=== PATIENT | female | born 1995 | race Two or more races ===

== ENCOUNTER 2016-12-04 10:03 | Emergency (ER) | payer OTHER ==
[2016-12-04 10:11] VITALS: BP 141/75
--- NOTE | 2016-12-04 10:40 | ER Document Report ---
ED General - General Chief Complaint: Flank Pain Stated Complaint: BACK PAIN Time Seen by Provider: 12/04/16 10:19 Mode of Arrival: Ambulatory Information source: Patient Notes: 20-year-old female presents with complaints of left CVA tenderness of 5 day duration. Patient denies any fevers or chills nausea vomiting or diarrhea except for one episode today. Patient denies any burning on urination difficulty urinating any frequency. Patient denies any trauma or twisting wrong Patient denies any cauda equina concerns TRAVEL OUTSIDE OF THE [place] IN LAST 30 DAYS: No - Related Data Allergies/Adverse Reactions: No Known Allergies Allergy (Unverified 12/04/16 10:51) Past Medical History - Social History Smoking Status: Never Smoker Chew tobacco use (# tins/day): No Frequency of alcohol use: None Drug Abuse: None Family History: Reviewed & Not Pertinent Patient has suicidal ideation: No Patient has homicidal ideation: No Renal/ Medical History: Denies: Hx Peritoneal Dialysis Surgical Hx: Negative Review of Systems - Review of Systems Notes: REVIEW OF SYSTEMS: CONSTITUTIONAL : Denies fever, chills, or sweats. Denies recent illness. EENT: Denies eye, ear, throat, or mouth pain or symptoms. Denies nasal or sinus congestion or discharge. Denies throat, tongue, or mouth swelling or difficulty swallowing. CARDIOVASCULAR: Denies chest pain. Denies palpitations or racing or irregular heart beat. Denies ankle edema. RESPIRATORY: Denies cough, cold, or chest congestion. Denies shortness of breath, difficulty breathing, or wheezing. GASTROINTESTINAL: Admits to nausea vomiting 1, admits to left flank pain GENITOURINARY: Denies difficulty urinating, painful urination, burning, frequency, blood in urine, or discharge. FEMALE GENITOURINARY: Denies vaginal bleeding, heavy or abnormal periods, irregular periods. Denies vaginal discharge or odor. MUSCULOSKELETAL: Denies back or neck pain or stiffness. Denies joint pain or swelling. SKIN: Denies rash, lesions or sores. HEMATOLOGIC : Denies easy bruising or bleeding. LYMPHATIC: Denies swollen, enlarged glands. NEUROLOGICAL: Denies confusion or altered mental status. Denies passing out or loss of consciousness. Denies dizziness or lightheadedness. Denies headache. Denies weakness or paralysis or loss of use of either side. Denies problems with gait or speech. Denies sensory loss, numbness, or tingling. Denies seizures. PSYCHIATRIC: Denies anxiety or stress. Denies depression, suicidal ideation, or homicidal ideation. ALL OTHER SYSTEMS REVIEWED AND NEGATIVE. PHYSICAL EXAMINATION: GENERAL: Well-appearing, well-nourished and in no acute distress. HEAD: Atraumatic, normocephalic. EYES: Pupils equal round and reactive to light, extraocular movements intact, conjunctiva are normal. ENT: Nares patent, oropharynx clear without exudates. Moist mucous membranes. NECK: Normal range of motion, supple without lymphadenopathy LUNGS: Breath sounds clear to auscultation bilaterally and equal. No wheezes rales or rhonchi. HEART: Regular rate and rhythm without murmurs ABDOMEN: Soft, nontender, nondistended abdomen. No guarding, no rebound. No masses appreciated. Left CVA tenderness Female : deferred Musculoskeletal: Normal range of motion, no pitting or edema. No cyanosis. NEUROLOGICAL: Cranial nerves grossly intact. Normal speech, normal gait. Normal sensory, motor exams PSYCH: Normal mood, normal affect. SKIN: Warm, Dry, normal turgor, no rashes or lesions noted. Dictation was performed using [employer] voice recognition software Physical Exam - Vital signs Vitals: Temp Pulse Resp BP Pulse Ox 98.1 F 74 20 141/75 H 98 12/04/16 10:06 12/04/16 10:06 12/04/16 10:06 12/04/16 10:06 12/04/16 10:06 Course - Re-evaluation Re-evalutation: 12/04/16 10:50 Urinalysis pending to evaluate for infectious process otherwise appears well 12/04/16 10:54 HCG is negative patient is noted to have mild leukoesterase is consistent with urinary tract infection she will be started on Cipro is otherwise well-appearing , patient did become nauseous in the ED as well was given nausea control will be discharged home in same After performing a Medical Screening Examination, I estimate there is LOW risk for ACUTE APPENDICITIS, BOWEL OBSTRUCTION, ACUTE CHOLECYSTITIS, PERFORATED DIVERTICULITIS, INCARCERATED HERNIA, PANCREATITIS, PELVIC INFLAMMATORY DISEASE, PERFORATED ULCER, ECTOPIC , or TUBO-OVARIAN ABSCESS, thus I consider the discharge disposition reasonable. Also, there is no evidence or peritonitis , sepsis, or toxicity. I have reevaluated this patient multiple times and no significant life threatening changes are noted. The patient and I have discussed the diagnosis and risks, and we agree with discharging home with close follow-up with the understanding that symptoms and presentations can change. We also discussed returning to the Emergency Department immediately if new or worsening symptoms occur. We have discussed the symptoms which are most concerning (e.g., bloody stool, fever, changing or worsening pain, vomiting) that necessitate immediate return. - Vital Signs Vital signs: Temp Pulse Resp BP Pulse Ox 98.1 F 74 20 141/75 H 98 12/04/16 10:06 12/04/16 10:06 12/04/16 10:06 12/04/16 10:06 12/04/16 10:06 - Laboratory Laboratory results interpreted by me: 12/04/16 10:39 Ur Leukocyte Esterase MODERATE H Discharge - Discharge Clinical Impression: Pyelonephritis Nausea & vomiting Qualifiers: Vomiting type: unspecified Vomiting Intractability: non-intractable Qualified Code(s): R11.2 - Nausea with vomiting, unspecified Condition: Stable Disposition: HOME, SELF-CARE Instructions: Pyelonephritis ([facility]) Additional Instructions: Follow up with your physician tomorrow for further care or return to the ED IMMEDIATELY if symptoms worsen or new concerns occur. If you cannot afford to follow up with your primary care physician a list of low cost clinics have been provided at the end of your discharge papers as well. Prescriptions: Ciprofloxacin HCl [Cipro 500 mg Tablet] 500 mg PO BID #20 tablet Promethazine HCl [Phenergan 25 mg Tablet] 1 - 2 tab PO Q6H PRN #15 tablet PRN Reason:
[2016-12-04] MEDS ORDERED: ONDANSETRON 4 MG TAB.RAPDIS PO ONE (10:50)
[2016-12-04] MEDS ORDERED: KETOROLAC TROMETHAMINE 60 MG/2 ML SDV IM ONE (10:52)
[2016-12-04 10:53] LABS: APPEARANCE,URINE SLIGHTLY-CLOUDY; BILIRUBIN,URINE NEGATIVE (NEGATIVE); GLUCOSE, URINE NEGATIVE (NEGATIVE); KETONES,URINE NEGATIVE (NEGATIVE); LEUKOCYTE ESTERASE,URINE MODERATE (NEGATIVE); NITRITE,URINE NEGATIVE (NEGATIVE); PROTEIN,URINE NEGATIVE (NEGATIVE); URINE SPECIFIC GRAVITY 1.018; UROBILINOGEN,URINE NEGATIVE mg/dL (<2.0)
== END 2016-12-04 11:10 | disposition home or self-care (01) ==
LOC: ER 10:03
DX: N12 Tubulo-interstitial nephritis, not specified as acute or chronic (principal); R11.2 Nausea with vomiting, unspecified; R10.9 Unspecified abdominal pain
CPT/HCPCS: 99284; 96372; 81025; 81001; J1885; S0119

== ENCOUNTER 2018-08-19 20:37 | Inpatient (IN) | payer MEDICAID ==
[2018-08-19] MEDS ORDERED: RINGERS SOLUTION,LACTATED 1,000 ML IV PRN (20:56)
[2018-08-19] MEDS ORDERED: OXYTOCIN/NORMAL SALINE 20 UNIT/1,000 ML RTUINJ IV PRN (20:56)
[2018-08-19] MEDS ORDERED: DINOPROSTONE 10 MG VAGINAL INSERT.SR PV PRN (20:56)
[2018-08-19 21:22] LABS: ABSOLUTE EOSINOPHILS # (AUTO) 0.1 10^3/uL (0.0-0.6); ABSOLUTE LYMPHOCYTES (AUTO) 3.2 10^3/uL (0.5-4.7); ABSOLUTE MONOCYTES (AUTO) 0.5 10^3/uL (0.1-1.4); ABSOLUTE NEUT (AUTO) 7.9 10^3/uL (1.7-8.2); BASOPHILS % (AUTO) 0.2 % (0-2); EOSINOPHILS % (AUTO) 0.8 % (0-6); HEMATOCRIT 36.5 % (36.0-47.0); HEMOGLOBIN 12.4 g/dL (12.0-15.5); LYMPHOCYTES % (AUTO) 27.5 % (13-45); MEAN CORPUSCULAR HGB CONC 33.9 g/dL (32.0-36.0); MEAN CORPUSCULAR VOLUME 88 fl (80-97); MONOCYTES % (AUTO) 4.7 % (3-13); PLATELET COUNT 356 10^3/uL (150-450); RED BLOOD COUNT 4.14 10^6/uL (3.72-5.28); RED CELL DISTRIBUTION WIDTH 15.8 % (11.5-14.0); SEGMENTED NEUTROPHILS % (AUTO) 66.8 % (42-78); TOTAL CELLS COUNTED % (AUTO) 100 %; WHITE BLOOD COUNT 11.7 10^3/uL (4.0-10.5)
[2018-08-19 21:25] LABS: APPEARANCE,URINE CLOUDY; BILIRUBIN,URINE NEGATIVE (NEGATIVE); COLOR,URINE YELLOW; GLUCOSE, URINE NEGATIVE (NEGATIVE); KETONES,URINE NEGATIVE (NEGATIVE); LEUKOCYTE ESTERASE,URINE TRACE (NEGATIVE); NITRITE,URINE NEGATIVE (NEGATIVE); PROTEIN,URINE NEGATIVE (NEGATIVE); URINE SPECIFIC GRAVITY 1.017; UROBILINOGEN,URINE NEGATIVE mg/dL (<2.0)
[2018-08-19 21:41] LABS: URINE AMPHETAMINES SCREEN NEGATIVE; URINE BARBITURATES SCREEN NEGATIVE; URINE BENZODIAZEPINES SCREEN NEGATIVE; URINE COCAINE SCREEN NEGATIVE; URINE MARIJUANA (THC) SCREEN NEGATIVE; URINE METHADONE SCREEN NEGATIVE; URINE PHENCYCLIDINE SCREEN NEGATIVE
[2018-08-19] MEDS ORDERED: DINOPROSTONE 10 MG VAGINAL INSERT.SR ONE (21:50)
[2018-08-19] MEDS ORDERED: PENICILLIN G POTASSIUM 5,000,000 UNIT in DEXTROSE 5%-WATER 100 ML IV ONE (22:00)
[2018-08-19] MEDS ORDERED: RINGERS SOLUTION,LACTATED 300 ML IV ONE (22:00)
--- NOTE | 2018-08-20 07:08 | Admission Physical ---
Datetime Report Generated by CPN: 08/20/2018 07:08 CURRENT ADMISSION Chief Complaint: Scheduled Induction of Labor Indication for Induction: Post Dates Admit Impression : Postterm, Intrauterine ; No Active Labor; Induction of Labor Admit Plan: Admit to Unit; Initiate Labor Induction Protocol ALLERGIES Medication Allergies: No Medication Allergies: No Known Allergies (08/19/2018) Latex: No Latex Allergies OBSTETRICAL HISTORY EDC: 08/12/2018 00:00 : 1 Para: 0 Term: 0 : 0 SAB: 0 IAB: 0 Livin Gestational Diabetes: No Rh Sensitization: No Incompetent Cervix: No ERIBERTO: No Infertility: No ART Treatment: No Uterine Anomaly: No IUGR: No Hx Previous C/S: No Macrosomia: No Hx Loss/Stillborn: No PIH: No Hx : No Placenta Previa/Abruption: No Depression/PP Depression: No PTL/PROM: No Post Hemorrhage: No Current Procedures: Ultrasound Obstetrical History Comments: g1-current , late to care SEE RECORDS Alcohol: No Marijuana : No Cocaine: No Other Illicit Drugs: No Cigarettes: Never Smoker. [id number] MEDICAL HISTORY Diabetes: No Blood Transfusion: No Pulmonary Disease (Asthma, TB): No Breast Disease: No Hypertension: No Production Crew Supervisor Surgery: No Heart Disease: No Hosp/Surgery: No Autoimmune Disorder: No Anesthetic Complications: No Kidney Disease: No Abnormal Pap Smear: No Neuro/Epilepsy: No Psychiatric Disorders: No Other Medical Diseases: No Hepatitis/Liver Disease: No Significant Family History: No Varicosities/Phlebitis: No Trauma/Violence : No Thyroid Dysfunction: No Medical History Comments: obesity INFECTIOUS HISTORY Gonorrhea: No Genital Herpes: No Chlamydia: Yes Tuberculosis: No Syphilis: No Hepatitis: No HIV/AIDS Exposure: No Rash or Viral Illness: No HPV: No Infectious History Comments: chlamydia 2018 PHYSICAL EXAM General: Normal HEENT: Normal Neurologic: Normal Thyroid: Normal Heart: Normal Lungs: Normal Breast: Normal Back: Normal Abdomen: Normal Genitourinary Exam: Normal Extremities: Normal DTRs: Normal Pelvic Type: Adequate Vital Signs: Reviewed; Within Normal Limits VAGINAL EXAM Dilatation: 0 Effacement: 0 Station: -3 MEMBRANES Pooling: Negative Membranes: Intact FETUS A EGA: 41.1 Monitoring: External US FHR- Baseline: 140 Variability: Moderate 6-25bpm Accelerations: 15X15 Decelerations: None FHR Category: Category I Estimated Weight (gm): 3500 Presentation: Vertex PLANS FOR LABOR AND DELIVERY Labor and Delivery: None Pain Management: Natural Feeding Preference: Breast Benefit of Breast Feed Discussed: Yes Circumcision: N/A INFORMED CONSENT Signature: with User ID: Joe
[2018-08-20] MEDS ORDERED: MISOPROSTOL 0.1 MG TABLET PV SCH ×2 (12:00→15:25)
[2018-08-20] MEDS ORDERED: MISOPROSTOL 0.1 MG TABLET PO SCH (12:00)
[2018-08-20] MEDS ORDERED: MISOPROSTOL 0.1 MG TABLET ONE ×2 (12:07→15:24)
--- NOTE | 2018-08-20 13:07 | L&D Progress Notes ---
PROGRESS NOTES Datetime Report Generated by CPN: 08/20/2018 13:07 PROGRESS NOTE Impression: Reassuring Heart Rate Procedures: Sterile Vag Exam Plan: Induction; Cervical Ripening Plan Other: +GBS, plan PCN when in active labor Vital Signs : Reviewed; Within Normal Limits Comment: at 41.1 wks s/p cervidil overnight for cervical ripening. Membranes intact. GBS+. Cat 1 FHR tracing. Pt remains comfortable with rare contraction. VE /-3. Sher's Catheter attempted x [address] into the cervix without success. Then 25 mcg Cytotec placed vaginally and 25 mcg PO given to continue with IOL and cervical ripening. Attending MD is Dr Chamorro. VAGINAL EXAM Dilatation: 1 Dilatation: 0 Effacement: 50 Effacement: 0 Station: -3 Station: -3 Contractions: occassional occassional LAST VAGINAL EXAM-NURSING Dilitation: 1.0 Dilitation: 0.0 Effacement: 50 Effacement: thick Station: -3 Station: -3 Contractions: UTD ctx pattern toco adjusted Contractions: UTD ctx pattern. toco adjusted Contractions: no ctx MEMBRANES Pooling: Negative Membranes: Intact Membranes: Intact FETUS A FHR - Baseline: 140 Monitoring: External US Variability: Moderate 6-25bpm Accelerations: 15X15 Decelerations: None FHR Category: Category I : 41.1 Estimated Weight (gm): 3500 Presentation: Vertex SIGNATURE SIGNATURE: ,[id number] SIGNATURE: [id number] Assignment: Mine Rosales MD Signature: with User ID: Hilary : with User ID: Hilary
--- NOTE | 2018-08-20 15:45 | L&D Progress Notes ---
PROGRESS NOTES Datetime Report Generated by CPN: 08/20/2018 15:44 PROGRESS NOTE Impression: Reassuring Heart Rate Procedures: Sterile Vag Exam Plan: Continue Present Management; Cervical Ripening Vital Signs : Reviewed; Within Normal Limits Comment: IOL s/p cervidil over night and then PO/PV cyctotec at noon. Pt remains comfortable, contractions have spaced apart. VE loose 1/50/-2, intact. GBS +. 2nd dose of 25 mcg PV cytotec and 25 mcg PO cyctec given to continue with IOL. Position changes encouraged. Start PCN once pt is in active labor or SROM. VAGINAL EXAM Dilatation: 1 Effacement: 50 Station: -2 Contractions: q2-6 Dilitation: 1-2 Effacement: 50 Station: -3 MEMBRANES Membranes: Intact FETUS A FHR - Baseline: 145 Monitoring: External US Variability: Moderate 6-25bpm Accelerations: 15X15 FHR Comments: the [facility] EFM system has picked up maternal HR due to patients position FETUS C SIGNATURE: [id number];[id number] Assignment: Mine Rosales MD Signature: with User ID: [email or web address] : with User ID: [email or web address]
[2018-08-20] MEDS ORDERED: PENICILLIN G-K 5 MILLION UNIT VIAL ONE (20:36)
[2018-08-20] MEDS ORDERED: OXYTOCIN 10 UNIT/ML VIAL ONE (21:07)
[2018-08-20] MEDS ORDERED: LIDOCAINE 1% INJ-PF (10 MG/ML) 30 ML SDV ONE (21:07)
[2018-08-20] MEDS ORDERED: OXYTOCIN/NORMAL SALINE 20 UNIT/1,000 ML RTUINJ ONE (21:07)
[2018-08-20] MEDS ORDERED: MISOPROSTOL 0.2 MG TABLET ONE (21:07)
[2018-08-20] MEDS ORDERED: NALBUPHINE HCL INJ 10 MG/1 ML AMPULE INJ ONE (22:03)
[2018-08-20] MEDS ORDERED: PROMETHAZINE HCL INJ 25 MG/1 ML VIAL IV ONE (22:03)
[2018-08-20] MEDS ORDERED: NALBUPHINE HCL INJ 10 MG/1 ML AMPULE ONE (22:07)
[2018-08-20] MEDS ORDERED: PROMETHAZINE HCL INJ 25 MG/1 ML VIAL ONE (22:07)
[2018-08-21] MEDS ORDERED: PENICILLIN G-K 5 MILLION UNIT VIAL ONE ×2 (00:47→04:44)
[2018-08-21] MEDS ORDERED: EPHEDRINE SULFATE INJ 50 MG/1 ML AMPULE ONE (03:00)
[2018-08-21] MEDS ORDERED: BUPIVACAINE HCL 0.25 % INJ/PF (2.5 MG/1 ML) 30 ML VIAL ONE (03:00)
[2018-08-21] MEDS ORDERED: FENTANYL/BUPIVACAINE/NS/PF 300 MCG/150 ML RTUINJ EPI ONE (03:00)
[2018-08-21] MEDS: PENICILLIN G-K 5 MILLION UNIT VIAL IV SCH ×2 (04:50→10:25)
--- NOTE | 2018-08-21 05:40 | L&D Progress Notes ---
PROGRESS NOTES Datetime Report Generated by CPN: 08/21/2018 05:40 PROGRESS NOTE Impression: Normal Progression of Labor Procedures: Artificial ROM Plan: Continue Present Management Vital Signs : Reviewed; Within Normal Limits Comment: Pt comfortable-s/p epidural VAGINAL EXAM Dilitation: 9.0 Dilitation: 9.0 Dilitation: 6.0 Dilitation: 3.0 Dilitation: 2.0 Effacement: 100 Effacement: 100 Effacement: 100 Effacement: 75 Effacement: 50 Station: 2 Station: 1 Station: 0 Station: 0 Station: -3 Contractions: post epidural Contractions: with some irritability Contractions: with periods of irritability Contractions: with periods of irritability Contractions: with periods of irritability Contractions: irregular in between Contractions: UC not tracing well s/t maternal habitus and pt position on side FETUS A FHR - Baseline: 120s Monitoring: External US Variability: Moderate 6-25bpm Accelerations: 15X15 Decelerations: None FHR Category: Category I : 41.2 FETUS C SIGNATURE: [id number];[id number] Signature: with User ID: [email or web address]
[2018-08-21] MEDS ORDERED: ZOLPIDEM TARTRATE 5 MG TABLET PO PRN (07:14)
[2018-08-21] MEDS ORDERED: DIBUCAINE 1% OINTMENT 56 GM TP PRN (07:14)
[2018-08-21] MEDS ORDERED: HYDROCODONE/ACETAMINOPHEN 5-325 MG TABLET PO PRN (07:14)
[2018-08-21] MEDS ORDERED: ACETAMINOPHEN WITH CODEINE #3 TABLET PO PRN ×2 (07:14)
[2018-08-21] MEDS ORDERED: BENZOCAINE/MENTHOL AEROSOL SPRAY 56 ML TOP PRN (07:14)
[2018-08-21] MEDS ORDERED: DIPH/PERTUSS(ACELL)/TETANUS VAC/PF 0.5 ML SYR (>=10YO) IM PRN (07:14)
[2018-08-21] MEDS ORDERED: OXYTOCIN/NORMAL SALINE 20 UNIT/1,000 ML RTUINJ IV PRN (07:14)
--- NOTE | 2018-08-21 10:21 | Delivery Summary ---
Del Sum A-C Datetime Report Generated by CPN: 08/21/2018 10:21 DELIVERY PERSONNEL DELIVERY PERSONNEL: [id number] Delivery Doctor:: Mine Rosales MD Labor and Delivery Nurse:: Gissell Hernandez RNtin flipper Nurse:: Nhi Joseph RN Customer Account Coordinator/COSMETOLOGY INSTRUCTOR: Rocio Bennett, DIET TECH MATERNAL INFORMATION Delivery Anesthesia: Epidural Medications After Delivery: Pitocin Bolus-Please Comment; Pitocin Drip 20 Units/1000ml NSS Meds After Delivery Comment: Pitocin 20 units in 1 L NS bolusing per order Estimated Blood Loss (ml): 400 ml Maternal Complications: None Provider Comments: of a viable female at 0642 with an OA presentation; APGARs 8, 9; 2nd degree midline vag lac LABOR SUMMARY EDC: 08/12/2018 00:00 No. Babies in Womb: 1 Attempted: No Labor Anesthesia: Epidural LABOR INFORMATION Reason for Induction: Post Dates Onset of Labor: 08/21/2018 03:00 Complete Dilatation: 08/21/2018 05:58 Cervical Ripening Agents: Cervidil; Cytotec @ Oxytocin: Induction Group B Beta Strep: Positive Antibiotics # of Doses: 4 Antibiotics Time of Last Dose: 0449 Name of Antibiotic Given: PCN Steroids Given: None Reason Steroids Not Administered: Not Applicable MEMBRANES Membranes Rupture Method: Spontaneous Rupture of Membranes: 08/21/2018 19:35 Length of Rupture (hr): -12.88 Amniotic Fluid Color: Clear Amniotic Fluid Amount: Scant Amniotic Fluid Odor: Normal STAGES OF LABOR Stage 1 hr: 2 Stage 1 min: 58 Stage 2 hr: 0 Stage 2 min: 44 Stage 3 hr: 0 Stage 3 min: 5 Total Time in Labor hr: 3 Total Time in Labor min: 47 VAGINAL DELIVERY Episiotomy: None Laceration #1: Vaginal Laceration Extension #1: Second Degree Laceration Repair: Yes Laceration Repair Note: 2-0 vicryl used for repair Sponge Count Correct: Yes Sharps Count Correct: Yes CSECTION DELIVERY Primary Indication: N/A Secondary Indication: N/A CSection Incidence: N/A Labor: N/A Elective: N/A CSection Incision: N/A BABY A INFORMATION Delivery Date/Time: 08/21/2018 06:42 Method of Delivery: Vaginal Born in Route : No : N/A Forceps: N/A Vacuum Extraction: N/A Shoulder Dystocia : No PRESENTATION/POSITION BABY A Presentation: Cephalic Cephalic Presentation: Vertex Vertex Position: Left Occipital Anterior Breech Presentation: N/A PLACENTA INFORMATION BABY A Placenta Delivery Time : 08/21/2018 06:47 Placenta Method of Delivery: Spontaneous Placenta Status: Delivered SCORES BABY A Heart Rate 1 min: >100 bpm Resp Effort 1 min: Slow, Irregular Reflex Irritability 1 min: Cough or Sneeze or Pulls Away Muscle Tone 1 min: Active Motion Color 1 min: Body Protection, Extremities Blue SCORE 1 MIN: 8 Heart Rate 5 min: >100 bpm Resp Effort 5 min: Good Cry Reflex Irritability 5 min: Cough or Sneeze or Pulls Away Muscle Tone 5 min: Active Motion Color 5 min: Body Protection, Extremities Blue SCORE 5 MIN: 9 INFORMATION BABY A Gestational Age at Delivery: 41.2 Gestational Status: Late Term- 41- 41.6 Weeks Infant Outcome : Liveborn Condition : Stable Sex: Female IDENTIFICATION BABY A Infant Verification Date/Time: 08/21/2018 07:11 ID Band Number: [id number] Mother's Name Verified: Yes RN Verifying : killinger Additional Verifying Personnel: denise CORD INFORMATION BABY A No. Cord Vessels: 3 Nuchal Cord : N/A True Knot: 0 Cord Blood Taken: Yes-For Storage (Mom's Blood type +) Suction: None ASSESSMENT BABY A Complications: None Physical Findings at Delivery: Within Normal Limits Respirations: Appears Normal Skin to Skin: Yes Skin to Skin Time (min): 60 Simulation Technician/ALS Called : No BABY B INFORMATION : N/A SIGNATURES Signature: with User ID: [email or web address]
[2018-08-21] MEDS: MISOPROSTOL 0.1 MG TABLET PV SCH (10:24)
[2018-08-21] MEDS: PENICILLIN G POTASSIUM 2,500,000 UNIT in DEXTROSE 5%-WATER 50 ML IV SCH (10:26)
[2018-08-21] MEDS: FERROUS SULFATE 325 MG TABLET PO SCH ×2 (10:30→18:40)
[2018-08-21] MEDS: SENNOSIDES/DOCUSATE 8.6-50 MG 1 EACH TABLET PO SCH (10:30)
[2018-08-21] MEDS: DOCUSATE SODIUM 100 MG CAPSULE PO SCH ×2 (10:30→18:40)
[2018-08-21] MEDS: PRENATAL VITAMIN W DHA CAPSULE PO SCH (10:30)
[2018-08-21] MEDS: IBUPROFEN 800 MG TABLET PO SCH ×2 (13:19→22:06)
[2018-08-22] MEDS: IBUPROFEN 800 MG TABLET PO SCH ×3 (05:57→21:07)
[2018-08-22 07:40] LABS: HEMATOCRIT 27.1 % (36.0-47.0); MEAN CORPUSCULAR HEMOGLOBIN 30.9 pg (27.0-33.4); MEAN CORPUSCULAR HGB CONC 34.9 g/dL (32.0-36.0); MEAN CORPUSCULAR VOLUME 89 fl (80-97); PLATELET COUNT 202 10^3/uL (150-450); RED BLOOD COUNT 3.07 10^6/uL (3.72-5.28); RED CELL DISTRIBUTION WIDTH 16.4 % (11.5-14.0); WHITE BLOOD COUNT 9.9 10^3/uL (4.0-10.5)
[2018-08-22 07:41] LABS: HEMOGLOBIN 9.5 g/dL (12.0-15.5)
[2018-08-22] MEDS: SENNOSIDES/DOCUSATE 8.6-50 MG 1 EACH TABLET PO SCH (09:55)
[2018-08-22] MEDS: DOCUSATE SODIUM 100 MG CAPSULE PO SCH ×2 (09:55→17:20)
[2018-08-22] MEDS: FERROUS SULFATE 325 MG TABLET PO SCH ×2 (09:55→17:20)
[2018-08-22] MEDS: PRENATAL VITAMIN W DHA CAPSULE PO SCH (09:55)
--- NOTE | 2018-08-22 11:58 | PDOC PROGRESS REPORT ---
Subjective-OB Progress Note for:: 08/22/18 Subjective: 22yo G1 now P1 s/p ppd 1. Ambulating, and voiding without difficulty. Reports pain well controlled with medication. No concerns at this time. Physical Exam (OB) Vital Signs: Temp Pulse Resp BP Pulse Ox 97.9 F 91 14 109/65 100 08/22/18 07:39 08/22/18 07:39 08/22/18 07:39 08/22/18 07:39 08/22/18 07:39 - General General Appearance: Appears well In distress: None - PIH/Pre-Eclampsia DTR's: 2 + Clonus: Negative Headache: Absent Epigastric Pain: No Visual Changes: No - Episiotomy/Laceration Site Condition: Well Approximated - Lochia Lochia Amount: Small 10-25 ml Lochia Color: Rubra/Red - Abdomen Description: Soft Hernia Present: No Fundal Description: Firm, Midline Fundal Height: u/u - u/2 - Respiratory Respiratory Status: No respiratory distress - Extremities Upper extremity: Normal inspection Lower extremities: Normal inspection - Neurological Cognition: Normal Orientation: AAOx4 - Psychological Associated symptoms: Normal affect, Normal mood Objective-Diagnostic Laboratory: 08/22/18 06:54 08/22/18 06:54 WBC 9.9 RBC 3.07 L Hgb 9.5 L D Hct 27.1 L MCV 89 MCH 30.9 MCHC 34.9 RDW 16.4 H Plt Count 202 Assessment and Plan(PN) - Assessment and Plan (1) Obstetric vaginal laceration with second degree perineal laceration Is this a current diagnosis for this admission?: Yes Plan: routine pp care. Continue to monitor for s/s of infection. (2) Acute blood loss anemia Is this a current diagnosis for this admission?: Yes Plan: increase dietary iron and FeSO4 BID (3) Delivery normal Is this a current diagnosis for this admission?: Yes Plan: routine pp care - Time Spent with Patient Time with patient: Less than 15 minutes Medications reviewed and adjusted accordingly: Yes - Disposition Anticipated Discharge: Home Within: within 24 hours
[2018-08-23] MEDS: IBUPROFEN 800 MG TABLET PO SCH ×2 (05:24→14:38)
[2018-08-23 08:35] VITALS: BP 118/61
--- NOTE | 2018-08-23 09:09 | PDOC DISCHARGE SUMMARY ---
Final Diagnosis Discharge Date: 08/23/18 - Final Diagnosis (1) Acute blood loss anemia Is this a current diagnosis for this admission?: Yes (2) Delivery normal Is this a current diagnosis for this admission?: Yes (3) Obstetric vaginal laceration with second degree perineal laceration Is this a current diagnosis for this admission?: Yes Discharge Data - Discharge Medication Home Medications: 95/Iron Fum/Folic/Dha [ + Dha Combo Pack] 1 each PO DAILY 08/19/18 Reason(s) for Admission: Induction of Labor Procedures: NST Intrapartum Procedure(s): Spontaneous Vaginal Delivery Complication(s): Laceration-Vaginal, Laceration-Perineal Laceration-Degree: 2nd - Diagnosis Test Laboratory: Temp Pulse Resp BP Pulse Ox 98.3 F 96 16 118/61 100 08/23/18 08:11 08/23/18 08:11 08/23/18 08:11 08/23/18 08:11 08/23/18 08:11 08/19/18 08/19/18 08/22/18 20:45 21:05 06:54 RBC 4.14 3.07 L Hgb 12.4 9.5 L D Hct 36.5 27.1 L Urine Opiates Screen NEGATIVE - Discharge information/Instructions Discharge Activity: Balance Activity w/Rest, Pelvic Rest Discharge Diet: Regular Disposition: HOME, SELF-CARE Follow up with: [facility] in: 4, Weeks
[2018-08-23] MEDS: PRENATAL VITAMIN W DHA CAPSULE PO SCH (09:12)
[2018-08-23] MEDS: FERROUS SULFATE 325 MG TABLET PO SCH (09:12)
[2018-08-23] MEDS: SENNOSIDES/DOCUSATE 8.6-50 MG 1 EACH TABLET PO SCH (09:12)
[2018-08-23] MEDS: DOCUSATE SODIUM 100 MG CAPSULE PO SCH (09:12)
== END 2018-08-23 14:45 | disposition home or self-care (01) | DRG 807 ==
LOC: LR 20:37 → 2S 08-21 10:00
PROVIDERS: ADMIT Obstetrics & Gynecology; ATTEND Obstetrics & Gynecology
PROC: 10E0XZZ Delivery of Products of Conception, External Approach (ICD-10-PCS; principal; 2018-08-21)
PROC: 0KQM0ZZ Repair Perineum Muscle, Open Approach (ICD-10-PCS; 2018-08-21)
DX: O48.0 Post-term pregnancy (principal); Z37.0 Single live birth; O99.824 Streptococcus B carrier state complicating childbirth; O70.1 Second degree perineal laceration during delivery; Z3A.41 41 weeks gestation of pregnancy
CPT/HCPCS: 36415; 80307; 81005; 85025; 85027; 86592; 86850; 86900; 86901; J2300; J2540; J2550; J2590; J3010; J3490

== ENCOUNTER → 2020-03-15 | Outpatient (CLI) | payer MEDICAID ==
--- NOTE | 2020-03-15 18:00 | RADIOLOGY REPORT (SQ) ---
EXAM DESCRIPTION: CHEST 2 VIEWS IMAGES COMPLETED DATE/TIME: 03/15/2020 4:36 pm REASON FOR STUDY: R05; PERSISTENT COUGH. COMPARISON: None. EXAM PARAMETERS: NUMBER OF VIEWS: two views TECHNIQUE: Digital Frontal and Lateral radiographic views of the chest acquired. RADIATION DOSE: NA LIMITATIONS: none FINDINGS: LUNGS AND PLEURA: Mild left basilar atelectasis/ consolidation. No pleural effusion or pn eumothorax. MEDIASTINUM AND HILAR STRUCTURES: No masses or contour abnormalities. HEART AND VASCULAR STRUCTURES: Heart normal size. No evidence for failure. BONES: No acute findings. HARDWARE: None in the chest. OTHER: No other significant finding. IMPRESSION: Mild left basilar atelectasis/ infiltrate. COMMENT: Multiple attempts were made to contact the ordering provider as requested. No one answered phone number provided. TECHNICAL DOCUMENTATION: JOB ID: [id number] 2010 [employer]- All Rights Reserved Reading location - IP/workstation name: [email or web address]
== END ==
LOC: RAD 17:18
PROVIDERS: ATTEND Nurse Practitioner Family
DX: R05 Cough (principal)
CPT/HCPCS: 71046

== ENCOUNTER → 2020-03-20 | Outpatient (CLI) | payer MEDICAID ==
--- NOTE | 2020-03-20 15:15 | RADIOLOGY REPORT (SQ) ---
EXAM DESCRIPTION: CHEST PA/LATERAL IMAGES COMPLETED DATE/TIME: 03/20/2020 3:04 pm REASON FOR STUDY: COUGH COMPARISON: 03/15/2020 EXAM PARAMETERS: NUMBER OF VIEWS: two views TECHNIQUE: Digital Frontal and Lateral radiographic views of the chest acquired. RADIATION DOSE: NA LIMITATIONS: none FINDINGS: LUNGS AND PLEURA: Minimal atelectasis in the left base. No consolidation or effusions. MEDIASTINUM AND HILAR STRUCTURES: No masses or contour abnormalities. HEART AND VASCULAR STRUCTURES: Heart normal size. No evidence for failure. BONES: No acute findings. HARDWARE: None in the chest. OTHER: No other significant finding. IMPRESSION: Minimal linear atelectasis in the left base. No effusions. Aeration is improved when c ompared to prior study. TECHNICAL DOCUMENTATION: JOB ID: [id number] 2010 [employer]- All Rights Reserved Reading location - IP/workstation name: [email or web address]
== END ==
LOC: OD 14:51
PROVIDERS: ATTEND Nurse Practitioner Family
DX: R05 Cough (principal); J98.11 Atelectasis
CPT/HCPCS: 71046